=== PATIENT | male | born 1955 | race Caucasian/White ===

== ENCOUNTER 2024-10-24 07:07 | Day surgery (SDC) | payer MEDICARE ==
[~2024-10-24] VITALS: Ht 180.3 cm; Wt 100.0 kg
[~2024-10-24 07:07] MED LIST: CARDURA1 MG PO; CO Q-1010 MG PO; FISH OIL 1,001000 MG PO; FLAXSEED OIL1000 M1 PO; IBLOOD GLUCOSE TEST STRIP 1 EA TEST VI PRN; LACTATED RINGER'S 1,000 ML IV SCH; LIDOCAINE HCL 1% 5 ML SDV INJ ONE; MIDAZOLAM HCL 5 MG/5 ML VIAL IV PRN; TYLENOL325 MG PO; VITAMIN C1000 MG PO; ZANAFLEX2 M1 PO; ZINC30 M1 PO; fentaNYL citrate 100 MCG/2 ML VIAL IV PRN
[2024-10-24 07:27] VITALS: BP 128/63
[2024-10-24] MEDS ORDERED: OMEPRAZOLE10 MG PO (07:31)
[2024-10-24] MEDS ORDERED: DICLOFENAC POTA50 MG PO (07:31)
--- NOTE | 2024-10-24 07:31 | NUR ---
PT NOT AVAILABLE FOR VISIT. PROVIDED PRAYER.
--- NOTE | 2024-10-24 07:41 | NUR ---
PT NOT AVAILABLE FOR VISIT. PROVIDED PRAYER.
[2024-10-24] MEDS ORDERED: MIDAZOLAM HCL 5 MG/5 ML VIAL ONE (08:27)
[2024-10-24] MEDS ORDERED: fentaNYL citrate 100 MCG/2 ML VIAL ONE (08:28)
--- NOTE | 2024-10-24 09:19 | NUR ---
10/24/24918 Kiko Mauro 0914: PT ARRIVED TO PACU VIA STRETCHER. PT ON 2L NC. PT NON AROUSABLE AT THIS TIME. PT SATS IN THE LOW 90'S. 918: PT AROUSABLE TO TOUCH AND NAME AT THIS TIME. PT REMAINS ON 2L NC.
[2024-10-24 09:31] VITALS: BP 106/62
--- NOTE | 2024-10-24 11:24 | OR ---
[facility] [address] [place], [place] [address] Signed DATE OF OPERATION: 10/24/2024 SURGEON: Shilpi Miller MD PREOPERATIVE DIAGNOSIS: Colon screening. POSTOPERATIVE DIAGNOSES: 1. Sigmoid diverticulosis. 2. Sessile polyp, sigmoid excised. PROCEDURE: Total colonoscopy to cecum with cold snare polypectomy x1. ANESTHESIA: Intravenous sedation, fentanyl 150 mcg, and Versed 7 mg. INDICATION: A 69-year-old white man, a patient of CUAUHTEMOC Bolanos. He underwent upper endoscopy in [facility] five years ago for reflux and history of Lucas's epithelium. He is currently asymptomatic as regards to colon, having no bleeding, diarrhea, or constipation. He initially denied he had colonoscopy in the past, but subsequently it was learned he probably did in fact have colonoscopy in the past. He has no current symptoms of bleeding, diarrhea, or constipation and no family history of colon cancer. He is admitted to undergo screening colonoscopy. He understands the risk of bleeding, infection, and perforation. FINDINGS: The prep was excellent. Complete colonoscopy was undertaken of the cecum with full intubation of the cecum. Visualized ileum was normal. He has a few very small diverticula of the sigmoid colon and one sessile polyp of the sigmoid, likely adenomatous, which was excised. There were no other findings of note. DESCRIPTION OF PROCEDURE: The patient was brought to the endoscopy suite and placed in lateral decubitus position, given intravenous sedation to the point of slurred speech and nystagmus. Digital rectal examination was normal. An Olympus video colonoscope was passed in the rectum and manipulated throughout the colon ultimately intubating the cecum itself. The ileocecal valve and appendiceal Electronically Signed By: SHILPI MILLER MD 10/24/24 1124 PATIENT NAME: JOSSIE LLANES OPERATIVE REPORT DATE OF : 57 REPORT #: [id number] PHYSICIAN: SHILPI MILLER MD PCP: LESLY BROOKS PAC REPORT IS CONFIDENTIAL AND NOT TO BE RELEASED WITHOUT AUTHORIZATION [facility] [address] [place], [place] [address] Signed orifice were normal. A brief visualization of the ilium showed there to be no abnormality. The scope was then withdrawn and examination throughout showed no sign of abnormality until the sigmoid where a sessile somewhat linear polyp was noted. Narrow-band imaging confirmed this likely to be an adenoma. This was excised with cold snare technique. A few scattered small diverticula were noted there as well. The scope was withdrawn and retroflexion in the rectum was normal. Scope was removed. The patient was taken to the recovery room in good condition. CONCLUDING DIAGNOSIS: 1. Minimal diverticulosis. 2. Probable adenomatous polyp x1. PLAN: Recommend repeat colonoscopy in 7-10 years based on current guidelines. He should additionally consider upper endoscopy in three years on the basis of history of Lucas's esophagus. He will return to the ongoing care of CUAUHTEMOC Bolanos. MD LULU Duffy/KATEY /[id number] cc: Lesly Brooks PA-C Copies: LESLY BROOKS ~ Electronically Signed By: SHILPI MILLER MD 10/24/24 1124 PATIENT NAME: JOSSIE LLANES OPERATIVE REPORT DATE OF : 57 REPORT #: [id number] PHYSICIAN: SHILPI MILLER MD PCP: LESLY BROOKS PAC REPORT IS CONFIDENTIAL AND NOT TO BE RELEASED WITHOUT AUTHORIZATION
--- NOTE | 2024-10-28 10:57 | PATH ---
[facility] [address] [place], [place] [address] Signed SPECIMEN(S): A SIGMOID POLYP SPECIMEN SOURCE: A. SIGMOID POLYP CLINICAL HISTORY: Pre-: Surveillance colonoscopy, history of colon polyps. Post: Polyp x 1 FINAL PATHOLOGIC DIAGNOSIS: Colon, sigmoid, polypectomy: - Tubular adenoma BRP MICROSCOPIC EXAMINATION: Histologic sections of all submitted blocks are examined by light microscopy. These findings, together with the gross examination, support the pathologic diagnosis. GROSS DESCRIPTION: The specimen, labeled and designated "Jacqueline Faustin, sigmoid polyp," is received in formalin and consists of four lilly soft tissue fragments, ranging from 0.1-0.4 cm. Entirely submitted in (A1). AB (under the direct supervision of a pathologist) The Gross Description was prepared using a voice recognition system. The report was reviewed for accuracy; however, sound-alike word errors, addition and/or deletions may occur. If there is any question about this report, please contact Client Services. ADDITIONAL NOTES: Immunohistochemical and/or in situ hybridization studies if performed in this case included appropriate positive controls that reacted as expected. This test was developed and its performance characteristics determined by [email or web address]. It has not been cleared or approved by the U.S. Food and Drug Administration. The FDA has determined that such clearance or approval is not necessary. This test is used for clinical purposes. It should not be regarded as investigational or for research. [email or web address] is certified under the Clinical Laboratory Improvement Amendments of 1988 (CLIA) as qualified to perform high complexity clinical laboratory testing. PATIENT NAME: JOSSIE FAUSTIN PATHOLOGY DATE OF : 57 REPORT #: [id number] PHYSICIAN: SUNIL HUTSON PCP: MIKEY LOPEZ PAC REPORT IS CONFIDENTIAL AND NOT TO BE RELEASED WITHOUT AUTHORIZATION [facility] [address] [facility] [place] [address] Signed PERFORMING LABORATORY: Technical component was performed by [email or web address], [address] [place] [address] (CLIA# [id number]). Professional interpretation was performed by [facility], [address] [place] [address] (CLIA#:[id number]). Diagnostician: Chin Pace MD Pathologist Electronically Signed 10/28/2024 Copies: ~ PATIENT NAME: JOSSIE FAUSTIN PATHOLOGY DATE OF : 57 REPORT #: [id number] PHYSICIAN: SUNIL HUTSON PCP: MIKEY LOPEZ PAC REPORT IS CONFIDENTIAL AND NOT TO BE RELEASED WITHOUT AUTHORIZATION
== END 2024-10-24 09:52 | disposition home or self-care (01) ==
LOC: DS 07:07
PROVIDERS: ATTEND Surgery
PROC: 0DBN8ZZ Excision of Sigmoid Colon, Via Natural or Artificial Opening Endoscopic (ICD-10-PCS; principal; 2024-10-24 08:40)
DX: Z12.11 Encounter for screening for malignant neoplasm of colon (principal); D12.5 Benign neoplasm of sigmoid colon; K57.30 Diverticulosis of large intestine without perforation or abscess without bleeding; G47.33 Obstructive sleep apnea (adult) (pediatric); K21.9 Gastro-esophageal reflux disease without esophagitis; E78.5 Hyperlipidemia, unspecified; M17.0 Bilateral primary osteoarthritis of knee; I10 Essential (primary) hypertension; Z79.899 Other long term (current) drug therapy
CPT/HCPCS: 99153; G0500; J2250; J3010; J7121